=== PATIENT | female | born 1980 | race Caucasian/White ===

== ENCOUNTER → 2020-01-28 11:25 | Outpatient (CLI) | payer BC, SELFPAY ==
--- NOTE | ~2020-01-28 | MM_ITS ---
EXAMINATION: MM screening aury BI w reuben HISTORY: Screening mammogram TECHNIQUE: Craniocaudal and mediolateral oblique 3-D tomosynthesis images were obtained and synthetic 2-D images were generated. CAD analysis was submitted and interpreted. COMPARISON: 01/26/2019 bilateral digital screening mammogram 02/26/2019 diagnostic bilateral digital mammogram and Limited bilateral breast ultrasound examination BREAST PARENCHYMAL COMPOSITION: There are scattered areas of fibroglandular density. FINDINGS: There is no evidence of suspicious mass, calcification, or architectural distortion to sugg est malignancy in either breast. There has been no suspicious interval change. IMPRESSION: 1. No mammographic evidence of malignancy. 2. Recommend routine screening mammography in one year. BI-RADS Category 1: Negative Reviewed, dictated and finalized at location A.
== END ==
PROVIDERS: Visit Provider Nurse Practitioner
DX: Z12.31 Encounter for screening mammogram for malignant neoplasm of breast (principal)
CPT/HCPCS: 77063; 77067

== ENCOUNTER → 2020-02-02 09:24 | Outpatient (CLI) | payer BC, SELFPAY ==
--- NOTE | ~2020-02-02 | MR_ITS ---
EXAMINATION: MR knee RT wo con DATE: 02/02/2020 10:35 INDICATION: Right knee pain and swelling. TECHNIQUE: Magnetic resonance imaging (MRI) of the right knee was performed without intravenous contr ast. Sequences included axial PD-weighted FS FSE, coronal PD-weighted FSE and PD-weighted FS FSE, sag ittal PD-weighted FSE, and sagittal T2-weighted FS FSE. COMPARISON: None. FINDINGS: Medial compartment: Medial meniscus is normal. There is cartilage surface irregularity of tibial condyle and femoral cond yle. Marginal osteophytes are noted. Lateral compartment: Lateral meniscus is normal. There is cartilage surface irregularity of tibial condyle and femoral con dyle. Motion artifact decreases specificity. Marginal osteophytes are noted. Patellofemoral compartment: There is full-thickness cartilage loss of patellar median ridge and lateral facet with mild subchondr al edema-like marrow signal intensity. There is shallow partial-thickness cartilage loss of patellar medial facet. There is full-thickness cartilage loss of lateral trochlea with mild subchondral edema- like marrow signal intensity. There is shallow partial-thickness cartilage loss of medial trochlea. M arginal osteophytes are noted. Ligaments and tendons: The anterior and posterior cruciate ligaments are normal. Medial collateral ligament and lateral suki ateral ligament complex are intact. The patellar tendon is normal. Fluid: There is a small knee joint effusion. There is a small Mcmillan's cyst. Osseous/other: Red marrow expansion is noted. IMPRESSION: 1. Severe chondrosis of patellofemoral compartment and mild chondrosis of medial and lateral compartm ents. 2. Small knee joint effusion. 3. Small Mcmillan's cyst. Reviewed, dictated and finalized at location A. IMPRESSION: 1. Severe chondrosis of patellofemoral compartment and mild chondrosis of media l and lateral compartments. 2. Small knee joint effusion. 3. Small Mcmillan's cyst.
== END ==
DX: M25.461 Effusion, right knee (principal); M71.21 Synovial cyst of popliteal space [Baker], right knee
CPT/HCPCS: 73721

== ENCOUNTER → 2020-02-09 09:43 | Outpatient (CLI) | payer BC, SELFPAY ==
--- NOTE | ~2020-02-09 | MR_ITS ---
EXAMINATION: MR knee LT wo con DATE: 02/09/2020 10:30 INDICATION: Generalized left knee pain and swelling. Meniscal tear. TECHNIQUE: Magnetic resonance imaging (MRI) of the left knee was performed without intravenous contra st. Sequences included coronal PD-weighted FSE, coronal PD-weighted FS FSE, sagittal T2-weighted FSE , sagittal PD-weighted FS FSE and axial PD weighted fat saturated FSE. COMPARISON: None. FINDINGS: Medial compartment: Medial meniscus is normal. Small partial-thickness chondral fissure at the junction of the anterior t o central weightbearing medial femoral condyle without degenerative subchondral changes. Lateral compartment: Lateral meniscus is normal. Articular cartilage is normal. Patellofemoral compartment: Full/near full-thickness chondral fissuring extending from the lateral aspect of the medial patellar facet across the apical ridge and throughout much of the lateral patellar facet. There is subtle unde rlying cortical irregularity and extensive subarticular edema. Similar deep chondral ulceration with cortical irregularity and subarticular edema and cystic change at the central and superolateral aspec ts of the lateral trochlea. Deep chondral ulceration with small central subchondral osteophyte at the central aspect of the medial trochlea. Ligaments and tendons: Anterior and posterior cruciate ligaments are normal. The medial collateral ligament and fibular suki ateral ligament complex are normal. The extensor mechanism is normal. The visualized medial and later al hamstring tendons as well as the iliotibial band are normal. Fluid: Small knee joint effusion. No loose osteochondral bodies identified. Small Mcmillan's cyst with addition al small ganglion cyst extending caudally along the deep margin of the pes anserinus. Osseous/other: Patchy red marrow in the distal metaphyseal region of the femur. No fracture or pathologic marrow rep lacing process. IMPRESSION: 1. 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 2. Mild osteoarthritis in the medial compartment with small focus of moderate grade chondromalacia al crissy the weightbearing medial femoral condyle. 3. Small knee joint effusion. 4. Small Mcmillan's cyst and additional small ganglion cyst at the posteromedial aspect of the knee. Reviewed, dictated and finalized at location A. IMPRESSION: 1. Moderate patellofemoral osteoarthritis with extensive high-grade chondromala claudio. 2. Mild osteoarthritis in the medial compartment with small focus of moderate g rade chondromalacia along the weightbearing medial femoral condyle. 3. Small knee joint effusion. 4. Small Mcmillan's cyst and additional small ganglion cyst at the posteromedial a spect of the knee.
== END ==
DX: M25.562 Pain in left knee (principal); M17.12 Unilateral primary osteoarthritis, left knee; M94.262 Chondromalacia, left knee; M25.462 Effusion, left knee; M71.22 Synovial cyst of popliteal space [Baker], left knee; M67.462 Ganglion, left knee
CPT/HCPCS: 73721

== ENCOUNTER → 2021-02-27 14:43 | Outpatient (CLI) | payer BC, SELFPAY ==
--- NOTE | ~2021-02-27 | MM_ITS ---
EXAMINATION: MM screening aury BI w reuben HISTORY: Screening mammogram TECHNIQUE: Craniocaudal and mediolateral oblique 3-D tomosynthesis images were obtained and synthetic 2-D images were generated. CAD analysis was submitted and interpreted. COMPARISON: 01/28/2020 bilateral digital screening mammogram 02/26/2019 bilateral diagnostic mammogram and Limited bilateral breast ultrasound BREAST PARENCHYMAL COMPOSITION: There are scattered areas of fibroglandular density. FINDINGS: There is no evidence of suspicious mass, calcification, or architectural distortion to sugg est malignancy in either breast. There has been no suspicious interval change. IMPRESSION: 1. No mammographic evidence of malignancy. 2. Recommend routine screening mammography in one year. BI-RADS Category 1: Negative Reviewed, dictated and finalized at location A.
== END ==
PROVIDERS: Visit Provider Nurse Practitioner
DX: Z12.31 Encounter for screening mammogram for malignant neoplasm of breast (principal)
CPT/HCPCS: 77063; 77067

== ENCOUNTER → 2022-04-12 11:40 | Outpatient (CLI) | payer BC, SELFPAY ==
--- NOTE | ~2022-04-12 | MM_ITS ---
EXAMINATION: MM screening [facility] BI w reuben HISTORY: Screening mammogram TECHNIQUE: Craniocaudal and mediolateral oblique 3-D tomosynthesis images were obtained and synthetic 2-D images were generated. CAD analysis was submitted and interpreted. COMPARISON: 02/27/2021, 01/28/2020, 02/26/2019, 01/26/2019 BREAST PARENCHYMAL COMPOSITION: The breasts are heterogeneously dense, which may obscure small masses . FINDINGS: No suspicious mass, calcification, or architectural distortion are identified in either shanthi ast to suggest malignancy. There has been no suspicious interval change. IMPRESSION: 1. No mammographic evidence of malignancy. 2. Recommend routine screening mammography in one year. BI-RADS Category 1: Negative Reviewed, dictated and finalized at location A. DRY ROUTE DRIVER
== END ==
PROVIDERS: PCP Obstetrics & Gynecology Gynecology; Visit Provider Obstetrics & Gynecology Gynecology
DX: Z12.31 Encounter for screening mammogram for malignant neoplasm of breast (principal)
CPT/HCPCS: 77063; 77067

== ENCOUNTER 2022-08-17 12:05 | Outpatient (CLI) | payer BC, SELFPAY ==
[2022-08-17 13:26] LABS: Beta HCG Quantitative < 2.39 mIU/ML
[2022-08-20 04:28] LABS: LH 2.5 mIU/mL (***); Prolactin 8.2 ng/mL (***)
[2022-08-23 21:58] LABS: Estradiol, Ultrasensitive 88 pg/mL
== END 2022-08-17 12:06 | disposition home or self-care (01) ==
LOC: ANHLAB 12:06
PROVIDERS: PCP Obstetrics & Gynecology Gynecology; Visit Provider Obstetrics & Gynecology Gynecology
DX: N91.2 Amenorrhea, unspecified (principal)
CPT/HCPCS: 36415; 82670; 83001; 83002; 84146; 84439; 84443; 84702

== ENCOUNTER → 2022-08-19 12:45 | Outpatient (CLI) | payer BC, SELFPAY ==
--- NOTE | ~2022-08-19 | US_ITS ---
EXAMINATION: US pelvic complete DATE: 08/19/2022 13:10 INDICATION: Pelvic and perineal pain. Comparison:No prior studies for comparison. TECHNIQUE: Multiple transabdominal sonographic images of the pelvis performed. FINDINGS: The uterus measures 8.1 x 4.5 x 6.1 cm. There is uterine fibroid measuring 2 x 1.6 x 1.6 cm anteriorly. The endometrial complex measures 7 mm. The right ovary measures 2.9 x 1.8 x 2.6 cm and the left ovary measures 2.4 x 1.4 x 2.6 cm. There ar e small follicles in each ovary. Normal doppler signal in both ovaries. There is no free fluid in the pelvis. There are no abnormal masses seen on either side. IMPRESSION: 1. Uterine fibroid measuring 2 cm located anteriorly at the fundus. Reviewed, dictated and finalized at location L.
== END ==
PROVIDERS: PCP Advanced Practice Midwife; Visit Provider Advanced Practice Midwife
DX: D25.9 Leiomyoma of uterus, unspecified (principal); R10.2 Pelvic and perineal pain; N91.2 Amenorrhea, unspecified
CPT/HCPCS: 76856

== ENCOUNTER 2023-08-22 08:49 | Outpatient (CLI) | payer BC, SELFPAY ==
--- NOTE | ~2023-08-22 | MMUS_ITS ---
EXAMINATION: MM diagnostic aury BI w reuben, US breast BI limited HISTORY: Palpable left breast abnormality TECHNIQUE: Additional 3-D tomosynthesis images of the breasts were performed and synthetic 2-D images were generated. CAD analysis was submitted and interpreted. High resolution bilateral limited breast ultrasound was performed. COMPARISON: Comparison to multiple prior studies sequentially, with oldest reviewed study dated 01/26. BREAST PARENCHYMAL COMPOSITION: Not dense: There are scattered areas of fibroglandular density. FINDINGS: MAMMOGRAPHIC FINDINGS: There is focal asymmetry in the upper outer quadrant of the right breast, although no discrete mass i dentified. There is a mass in the lower outer quadrant of the left breast, middle third, correspondin g to the area of palpable concern. ULTRASOUND: Complete bilateral US of all 4 quadrants of the breasts and retroareolar region was reviewed. Right breast: At 9:00, 12 cm from the nipple, there is a 6 mm cyst. Left breast: At 4:00, 7 cm from the nipple, there is a 1.7 cm hypoechoic mass with internal vasculari ty IMPRESSION: 1. Slightly irregular shaped 1.7 cm left breast mass at 4:00, 7 cm from the nipple, corresponding to the mammographic and palpable abnormality. No evidence for malignancy in the right breast. 2. Ultrasound-guided left breast biopsy recommended. BI-RADS category 4, suspicious findings. Reviewed, dictated and finalized at location B. IMPRESSION: 1. Slightly irregular shaped 1.7 cm left breast mass at 4:00, 7 cm from the nip ple, corresponding to the mammographic and palpable abnormality. No evidence fo r malignancy in the right breast. 2. Ultrasound-guided left breast biopsy recommended. BI-RADS category 4, suspicious findings.
== END 2023-08-22 08:50 ==
LOC: MICIMG 08:50
PROVIDERS: PCP Obstetrics & Gynecology Gynecology; Visit Provider Obstetrics & Gynecology Gynecology
DX: N63.20 Unspecified lump in the left breast, unspecified quadrant (principal); R92.8 Other abnormal and inconclusive findings on diagnostic imaging of breast
CPT/HCPCS: 76642; 77062; 77066; G0279

== ENCOUNTER 2024-08-23 11:24 | Outpatient (CLI) | payer BC, SELFPAY ==
--- NOTE | ~2024-08-23 | MM_ITS ---
EXAMINATION: MM screening aury BI w reuben HISTORY: Screening TECHNIQUE: Craniocaudal and mediolateral oblique 3-D tomosynthesis images were obtained and synthetic 2-D images were generated. CAD analysis was submitted and interpreted. COMPARISON: Comparison to multiple prior studies sequentially, with oldest reviewed study dated 01/26. BREAST PARENCHYMAL COMPOSITION: Not dense: There are scattered areas of fibroglandular density. FINDINGS: There is no evidence of suspicious mass, calcification, or architectural distortion to sugg est malignancy in either breast. There has been no suspicious interval change. IMPRESSION: 1. No mammographic evidence of malignancy. 2. Recommend routine screening mammography in one year. BI-RADS Category 1: Negative Reviewed, dictated and finalized at location B.
== END 2024-08-23 11:25 | disposition home or self-care (01) ==
PROVIDERS: PCP Obstetrics & Gynecology Gynecology; Visit Provider Nurse Practitioner
DX: Z12.31 Encounter for screening mammogram for malignant neoplasm of breast (principal)
CPT/HCPCS: 77063; 77067

== ENCOUNTER 2025-04-20 19:12 | Emergency (ER) | payer BC, SELFPAY ==
--- OUTSIDE RECORDS SUMMARY | 2020-01-27 23:00 | XMS_ITS | Encounter Summary ---
Author Organization [facility] Healthcare Address [address] [place] [address] Care Team Providers Care Financial Auditor Name Role Phone Unavailable Primary Care Provider Unavailabl e Reason for Visit * Diagnostic Imaging (Routine) - Closed Specialty Diagnoses / Procedures Referred By Evens boone Referred To Contact Procedures Breast Imaging Screening Outside Reference Allison Newberry NP [address] [facility] [id number] [place] [address] Phone: tel: fax: Referral ID Status Reason Start Date Expiration Date Visits Re quested Visits Authorized [id number] Closed 09/09/2023 10/08/2024 1 1 Encounter Details Date Type Department Care Team (Late st Contact Info) Description 01/28/2020 Hospital Encounter [facility] [address] [place] [id number] Social History Tobacco Use Types Packs/Day Years Used Date Smoking Tobacco: Former Cigarettes 1 13 1 99 - 2007 Passive Smoke Exposure: Never Smokeless Tobacco: Never AUDIT-C Answer Date Recorded Q1: How often do you have a drink containing alc ohol? 2-3 times a week 01/02/2024 Q2: How many drinks containi ng alcohol do you have on a typical day when you are drinking? 3 or 4 01/02/2024 Q3: How often do you have si x or more drinks on one occasion? Less than monthly 01/02/2024 Personal Safety Answer Date Recorded Have you ever been in or are you currently in a harmful physical or emotional relationship or is someone making you feel afraid or unsafe? Denies 01/02/2024 Comments No Sex and Gender Information Value Date Recorded Sex Assigned at Not on file Legal Sex Female 3:55 PM CDT Gender Identity Not on file Sexual Orientation Not on file documented as of this encounter Functional Status * Difference in Last Two Brandon Scores Answer Date of Assessment Author 1 01/02/2024 11:15 AM CDT Jose Adams RN * Question Answer Date of Assessment Author MAP (mmHg) 102 01/02/2024 11:30 AM CDT Lidia Boland RN * Brady Fall Risk Question Answer Date of Assessment Author History of Falling 0 01/02/2024 11:14 AM Lidia Ramirez RN Secondary Diagnosis 15 01/02/2024 11:14 AM Lidia Castle RN Ambulatory Aids 0 01/02/2024 11:14 AM CDT Lidia Gilbert RN Intravenous Therapy/Heparin/Saline Lock 20 01/02/2024 11:14 AM CDT Jose Adams RN Gait/Transferring 0 01/02/2024 11:14 AM CDT Lidia Adams RN Mental Status 0 01/02/2024 11:14 AM CDT Lidia Wraren ms, RN Brady Fall Risk Score (Score >= 45 places fall precaution order) 35 01/02/2024 11:14 AM Lidia Pham RN Prior Fall Event (Autopopulated from EMR) None found 01/02/2024 11:14 AM CDT Audrey Adams RN * Brandon Scale Question Answer Date of Assessment Author Sensory Perceptions 4 01/02/2024 11:15 AM Lidia Castle RN Moisture 4 01/02/2024 11:15 AM CDT Lidia Boland RN Activity 4 01/02/2024 11:15 AM CDT Lidia Boland RN Mobility 4 01/02/2024 11:15 AM CDT Lidia Boland RN Nutrition 3 01/02/2024 11:15 AM MIT Lidia Boland RN Friction and Shear 3 01/02/2024 11:15 AM Lidia Ramirez RN Brandon Scale Score 22 01/02/2024 11:15 AM Lidia Ramirez RN * Fall Risk Interventions Question Answer Date of Assessment Author All Low Fall Interventions Applied Yes 01/02/2024 11:14 AM Lidia Pham RN All Moderate Fall Interventions Applied No 01/02/2024 11:14 AM Lidia Pham RN All Moderate Fall Risk Interventions EXCEPT: Gait belt at bedside;PT eval requested or obtained;OT eval requested or obtained 01/02/2024 11:14 AM Lidia Pham RN Reason For Exception(s) pacu 01/02/20 11:14 AM Lidia Pham RN * Pressure Injury Prevention Question Answer Date of Assessment Author Pressure Ulcer Prevention Interventions Keep skin clean and dry (Sensory Perception/Moistur e) 01/02/2024 11:15 AM Lidia Pham RN * AUDIT-C Score Answer Date of Assessment Author 5 01/02/2024 9:38 AM Rachid Crook RN * Alcohol Use Question Answer Date of Assessment Author Q1: How often do you have a drink containing alcohol? 2-3 times a week 01/02/2024 9:38 AM Rachid Crook RN Q2: How many drinks containing alcohol do you have on a typical day when you are drinking? 3 or 4 01/02/2024 9:38 AM Rachid Crook RN Q3: How often do you have six or more drinks on one occasion? Less than monthly 01/02/2024 9:38 AM Rachid Crook RN * Integumentary Question Answer Date of Assessment Author Skin Color Appropriate for ethnicity 01/02/2024 11:15 AM Lidia Pham RN Skin Condition/Temp Warm;Dry 01/02/2024 1 1:15 AM Lidia Pham RN Skin Integrity Surgical incision 01/02/2024 11: 15 AM Lidia Pham RN Skin Turgor Non-tenting 01/02/2024 11:15 AM Lidia Pham RN Integumentary Additional Assessments Yes-Brandon 01/02/2024 11:15 AM MIT Lidia Adams RN Integumentary (WDL) X 01/02/2024 1 1:15 AM IMT Lidia Adams RN Skin Location L breast 01/02/2024 11:15 AM MIT Lidia Adams RN * Brandon Scale Question Answer Date of Assessment Author Brandon Scale Used Brandon 01/02/2024 9:39 AM CDT Rachid Torre RN * Fall Risk Interventions Question Answer Date of Assessment Author All Low Fall Interventions Applied Yes 01/02/2024 11:14 AM Lidia Pham RN All Moderate Fall Interventions Applied No 01/02/2024 11:14 AM Lidia Pham RN All Moderate Fall Risk Interventions EXCEPT: Gait belt at bedside;PT eval requested or obtained;OT eval requested or obtained 01/02/2024 11:14 AM Lidia Pham RN Reason For Exception(s) pacu 01/02/20 24 11:14 AM MIT Lidia Adams RN * ADL Screening Question Answer Date of Assessment Author Hearing - Right Ear Functional 12/20/2023 4:11 PM Marisabel Hawley RN Hearing - Left Ear Functional 12/20/2023 4:11 PM Marisabel Rowland RN * Assistive Devices Question Answer Date of Assessment Author Assistive Devices/DME None 12/20/2023 4:11 PM Marisabel Rowland RN * Question Answer Date of Assessment Author Bed In Lowest Position Yes 01/02/2024 11:15 A M Lidia Pham RN Bed Wheels Locked Yes 01/02/2024 11:15 AM MIT Lidia Adams, FERNANDO documented as of this encounter Mental Status * Question Answer Entry Date Author Neuro (WILMER) WDL 01/02/2024 11:15 AM Lidia Paniagua RN documented in this encounter Plan of Treatment Not on file documented as of this encounter Procedures Procedure Name Priority Date/Time Associated Diagnosis Comments BREAST IMAGING MG SCREENING OUTSIDE REFERENCE Routine 01/28/2020 12:00 AM CDT documented in this encounter Results * Breast Imaging Screening Outside Reference (01/28/2020 12:00 AM CDT) Impressions [facility] - 09/09/2023 5:39 PM CDT These images are for Reference purposes only and have not been reviewed by [facility]iology. There will be no report generated by a [facility] Radiologist. Narrative [facility] - 09/09/2023 5:39 PM CDT EXAMINATION: Images For Reference Purposes Only us Allison Newberry NP IMG MAMMO PROCEDURES Final Result [facility] documented in this encounter Visit Diagnoses Not on filedocumented in this encounter
--- NOTE | ~2025-04-20 | XR_ITS ---
EXAMINATION: XR chest 1V portable COMPARISON: No comparisons available. HISTORY: SYNCOPE FINDINGS: The lungs are clear, no effusion. No pneumothorax. Heart is normal size. Mediastinal and hilar contours are within normal limits. Bony thorax no acute abnormality. Miscellaneous: None Impression: No acute cardiopulmonary abnormality. Reviewed, dictated and finalized at location P. ANT CLERK Impression: No acute cardiopulmonary abnormality.
--- NOTE | ~2025-04-20 | CT_ITS ---
CT HEAD NON-CONTRAST Clinical History: fall Comparison: None Technique: Unenhanced axial images skull base to vertex Coronal, sagittal reformats CT images acquired with automatic exposure control for dose reduction DLP: 605 mGy-cm Findings: Sulci, ventricles: Unremarkable. No intracerebral hemorrhage. No evidence acute territorial infarct. No mass effect, midline shift. Bony calvarium intact. Visualized paranasal sinuses: Clear. Mastoid air cells: Clear. IMPRESSION: 1. No acute intracranial findings. Reviewed, dictated and finalized at location R. NCT PROFESSOR OF ENGLISH
[2025-04-20 19:16] VITALS: BP 155/92; PULSE 79; RESP 18; TEMP 36.8; O2SAT 100
--- NOTE | 2025-04-20 19:22 | ECG_ITS ---
Test Date: 2025-04-20 19:31:17 Measurements Intervals [place] Rate: 77 P: 60 AR: 171 QRS: 4 QRSD: 98 T: 13 QT: 397 QTc: 450 Interpretive Statements SINUS RHYTHM DELAYED PRECORDIAL R/S TRANSITION BASELINE ARTIFACT- V1 BORDERLINE ECG No previous ECG available for comparison Electronically Signed On 04-20-2025 19:54:45 AUTOMOBILE TECHNICIAN by Vel Burns D.O.
[2025-04-20 19:38] LABS: Hematocrit 38.2 % (37.0-47.0); Hemoglobin 12.6 g/dL (12.0-15.0); Immature Granulocyte Percent A 0.5 % (0-0.5); Lymphocytes Absolute Auto 2.48 K/mm3 (0.9-3.2); Mean Corpuscular HGB Conc 33.0 g/dl (32-36); Mean Corpuscular Hemoglobin 32.6 pg (26-34); Mean Corpuscular Volume 98.7 fl (80-100); Nucleated Red Blood Cells Absolute Auto 0.000 K/mm3 (0.0-0.012); Nucleated Red Blood Cells Perc 0.0 % (0.0-0.2); Platelet Count Result 313 k/mm3 (150-375); Red Blood Count 3.87 M/mm3 (4.2-5.4); White Blood Count 9.9 K/mm3 (4.5-10.0)
[2025-04-20 19:58] LABS: Alanine Aminotransferase 19 U/L (6-35); Albumin Level 4.3 g/dL (3.5-5.1); Alkaline Phosphatase 56 U/L (38-126); Anion Gap 10 mmol/L (4-12); Aspartate Amino Transferase 25 U/L (14-36); Bilirubin,Total 0.4 mg/dL (0.2-1.3); Blood Urea Nitrogen 13 mg/dL (7-17); Calcium 9.1 mg/dL (8.4-10.2); Carbon Dioxide 18 mmol/L (22-30); Chloride 104 mmol/L (98-107); Estimated CRCL calculation 98 ml/min; Estimated Glomerular Filt Rate > 60; Glucose 132 mg/dL (65-110); Potassium 3.4 mmol/L (3.4-5.0); Sodium 132 mmol/L (137-145); Total Protein 7.4 g/dL (6.3-8.2)
[2025-04-20 20:02] LABS: BEDSIDEPREGUCG Negative (Negative)
--- OUTSIDE RECORDS SUMMARY | 2025-04-20 20:11 | XMS_ITS | Continuity of Care Document ---
Author Organization [facility] Reta BOUDREAUX Address [address] [place] [address] Assessment No assessment recorded. Plan of Treatment Reminders Order Date Submit Date Provider Last Modified By Organization Details Last Modified Time Details Appointments None recorded. Lab None recorded. Referral None recorded. Procedures None recorded. Surgeries None recorded. Imaging None recorded. Medication Orders escitalopra m [address] mg tablet [address] [facility] [address] [place], [address], 13:18:53 Patient TargetsNo targets recorded. Patient Instructions Encounter Date Encounter Id Patient Instructions Last Modified By Organization Details Last Modified Time 02/19/2025 [id number] A healthy lifestyle: care instructions Not available 02/19/2025 13:18:46 Reason for Referral None Reported. Problems Name Problem SNOMED Code Status Onset Date Resolution Date Notes Provider Name and Address Organization Details Recorded Time Generalized anxiety disorder 83455596 Active 2022 Laz Armstrong PA-C Attn: Krystin lema,[address] [place], [address], [facility] 3 12:19:37 Obesity 226591199 Active 2022 Laz Armstrong PA-C Attn: Krystin lema,[address] [place], [address], [facility] 3 12:19:38 Essential hypertension 67450500 Active 2022 Laz Armstrong PA-C Attn: Krystin lema,[address], [place], [address], [facility] 3 11:28:05 Problem Notes None recorded. Procedures Surgical History Date Name Laterality Status Provider Name and Address Organization Details Recorded Time Knee Surgery completed Avril Tellez [place] - [facility] 11/05/2022 12:00:18 Imaging Results None recorded. Procedure Notes None recorded. Medical Equipment None Reported. Allergies No known drug allergies Medications Name Sig Start Date Stop Date Status Note LastModified by Organization Details LastModified Time fluoxetine 40 mg capsule Take 1 capsule by mouth once daily 10/04 completed Not Available Not Available Not Available medroxyprog esterone 10 mg tablet TAKE 1 TABLET BY MOUTH ONCE DAILY 11/05 completed Not Available Not Available Not Available clonidine HCl 0.1 mg tablet take one tablet up to twice daily as needed for BP >160/100 11/27 completed Not Available Not Available Not Available trazodone 50 mg tablet Take 1 tablet by mouth once daily 2024 active Not Available Not Available Not Avai lable famotidine 40 mg tablet TAKE 1 TABLET BY MOUTH ONCE DAILY active Not Available Not Available No t Available potassium chloride ER 10 mEq tablet,exte nded release TAKE 4 TABLETS BY MOUTH NOW 10/04 completed Not Available Not Available Not Available chlorthalid one 25 mg tablet TAKE 1 TABLET BY MOUTH ONCE DAILY FOR 30 DAYS 04/22 completed Not Available Not Available Not Available chlorthalid one 50 mg tablet TAKE 1 TABLET BY MOUTH ONCE DAILY 04/22 completed Not Available Not Available Not Available oxycodone-a cetaminophe n 5 mg-325 mg tablet TAKE 1 TO 2 TABLETS BY MOUTH EVERY 4 HOURS NEEDED FOR PAIN 10/04 completed Not Available Not Available Not Available amlodipine 10 mg tablet TAKE 1 TABLET BY MOUTH ONCE DAILY active Not Available Not Available No t Available buspirone 7.5 mg tablet TAKE 1 TABLET BY MOUTH TWICE DAILY 12/03 completed Not Available Not Available Not Available fluoxetine 20 mg capsule TAKE 1 CAPSULE BY MOUTH ONCE DAILY 01/07 completed Not Available Not Available Not Available hydroxyzine pamoate 25 mg capsule TAKE 1 CAPSULE BY MOUTH 4 TIMES DAILY NEEDED 10/04 completed Not Available Not Available Not Available bupropion HCl XL 300 mg 24 hr tablet, extended release TAKE 1 TABLET BY MOUTH ONCE DAILY FOR 30 DAYS 01/21 completed Not Available Not Available Not Available bupropion HCl XL 150 mg 24 hr tablet, extended release Take 1 tablet every day by oral route for 30 days. 12/21 completed Not Available Not Available Not Available escitalopra m 5 mg tablet TAKE 1 TABLET BY MOUTH ONCE DAILY active Not Available Not Available No t Available duloxetine 30 mg capsule,del ayed release Take 1 capsule every day by oral route for 15 days. 10/26 completed Not Available Not Available Not Available duloxetine 60 mg capsule,del ayed release TAKE 1 CAPSULE BY MOUTH ONCE DAILY FOR 30 DAYS 11/21 completed Not Available Not Available Not Available Slynd 4 mg (28) tablet TAKE 1 TABLET BY MOUTH ONCE DAILY active Not Available Not Available No t Available Sutab 1.479-0.188 -0.225 gram tablet TAKE 12 TABLETS BY MOUTH TWICE DAILY DIRECTED 10/04 completed Not Available Not Available Not Available Wegovy 0.25 mg/0.5 mL subcutaneou s pen injector Inject by subcutane ous route for 56 days. 12/03 completed Not Available Not Available Not Available Vitals Date Recorded Body height Body mass index (BMI) Body weight Oxygen saturation Heart rate Respiratory rate Systolic And Diastolic Provider Name and Address Organization Details Last Updated DateTime 167.64 cm 33.3 kg/m2 50268.7 8 g 98 % 88 /min 17 /min 158/88 mm[Hg] Stella Hopper MA [place] - [facility] 13:04:56 Social History Question Answer Notes LastModified by Organizat ion Details LastModified Time Tobacco Smoking Status Former Smoker Stella Henry MA null, [place] - [facility] 12/03/2022 09:39:03 Do You Have An Advance Directive? No Information n ot available 11/28/2023 Are You Blind Or Do You Have Difficulty Seeing? No Information n ot available 11/28/2023 What Is Your Level Of Caffeine Consumption? Heavy Information not available 11/28/2023 In The 14 Days Before Symptom Onset, Have You Had Close Contact With A Laboratory-confirm ed COVID-19 While That Case Was Ill? No Information n ot available 11/28/2023 In The 14 Days Before Symptom Onset, Have You Had Close Contact With A Person Who Is Under Investigation For COVID-19 While That Person Was Ill? No Information not available 11/28/2023 Are You Deaf Or Do You Have Serious Difficulty Hearing? No Information not available 11/28/2023 What Type Of Diet Are You Following? REGULAR Information n ot available 11/28/2023 Are There Any Guns Present In Your Home? No Information not available 11/28/2023 What Was The Date Of Your Most Recent Tobacco Screening? 02/19/2025 Information not available 02/19/2025 How Many Children Do You Have? 2 Information not available 11/28/2023 What Is Your Relationship Status? Information not available 11/28/2023 Do You Use Your Seat Belt Or Car Seat Routinely? Yes Information not available 11/28/2023 Are You Sexually Active? Yes Information not available 11/28/2023 Do You Have Smoke And Carbon Monoxide Detectors In Your Home? Yes Information not available 11/28/2023 At What Age Did You Start Smoking Tobacco? 11 Information not available 12/03/2022 Are You Passively Exposed To Smoke? No Information no t available 11/28/2023 Do You Use Sunscreen Routinely? Yes Information not available 11/28/2023 Has Tobacco Cessation Counseling Been Provided? Yes Information not available 12/03/2022 On What Date Was Tobacco Cessation Counseling Provided? 02/19/2025 Information not available 02/19/2025 Sex: Female Functional Status Question Answer Note LastModified by Organizat ion Details LastModified Time Do you use any illicit or recreational drugs? No Information not available 11/28/2023 Do you or have you ever used any other forms of tobacco or nicotine? No Information not available 12/03/2022 What is your level of alcohol consumption? Moderate Information not available 11/28/2023 Are you currently employed? Yes Information not available 11/28/2023 Are you able to care for yourself independently? Yes Information not available 11/28/2023 What is your exercise level? Occasional Information not available 11/28/2023 Mental Status Question Answer Note LastModified by Organization D etails LastModified Time Do you feel stressed (tense, restless, nervous, or anxious, or unable to sleep at night)? [id number] Information not available 11/28/2023 Family History Relationship Description Onset Age of this Age Resolved Age Notes LastModified by Organization Details LastModified Time Father Diabetes mellitus [email or web address] Not available 2022 11:59:21 Father Myocardial infarction Not available 11/07 09:38:30 Medical History Condition Response Anxiety Disorder Y High Blood Pressure Y Gynecological History Statement/Question Response Current Control Method Ablation Obstetrics History GPAL:G 0 P 0 0 0 2 Type Value Living 2 Immunizations Vaccine Type Date Status Note Provider Nam e and Address Organization Details Recorded Time MMR 07/09/1981 completed Telisa Rosalinda, [employer] null, [place] - [facility] 11/05/2022 11:57:19 DTP 07/14/1983 completed Telisa Rosalinda, [employer] [place], [place] [facility] 11/05/2022 11:57:20 DTP 08/13/1981 completed Telisa Rosalinda [employer] [place] [facility] 11/05/2022 11:57:20 DTP 08/25/1979 completed Telisa [place], [employer] [place] [facility] 11/05/2022 11:57:20 DTP 1978 completed Telisa [place], [employer] [place] [facility] 11/05/2022 11:57:20 DTP 12/25/1979 completed Telisa [place], [employer] [place] [facility] 11/05/2022 11:57:20 OPV, trivalent 07/14/1983 completed Telisa Nan d[place], [employer] [place] [facility] 11/05/2022 11:57:20 OPV, trivalent 08/13/1981 completed Telisa [place], [employer] [place] [facility] 11/05/2022 11:57:20 OPV, trivalent 08/25/1979 completed Telisa [place], [employer] [place] [facility] 11/05/2022 11:57:20 OPV, trivalent 1978 completed Telisa [place], [employer] [place] [facility] 11/05/2022 11:57:20 OPV, trivalent 12/25/1979 completed Telisa [place], [employer] [place] [facility] 11/05/2022 11:57:20 Tdap 11/05/2022 completed Telisa [place], [employer] [place] [facility] 11/05/2022 12:45:27 Past Encounters Encounter ID Performer Location Encounter Start Date Encounter Closed Date Diagnosis/Indication Diagnosis SNOMED-CT Code Diagnosis ICD10 Code Diagnosis IMO Codes Diagnosis Note [id number] [facility] [address] [place] [address] 01/21/2025 12:47:41 01/21/2025 13:20:47 Essential hypertension 29397761 I10 01/21/25: 160/94 today. will monitor at one month follow up. 12/21/24: 134/88 10/19/24: improved at 136/80 10/04/24: out of amlodipine and 159/96 and will refill. 11/28/23: elevated today at 170/92. did consider pheochromo cytoma with complaint of tremor, but denies YIN and diaphoresi s, other components of classic triad. keep BiD BP log and bring back in one week. 04/22/23: chlorthali done stopped 2/2 hypoNa and discharged on amlodipine 10. BPs reportedly well controlled while inpatient, but is 184/132 without red flag s/sx. recommend BiD BP monitoring and will start PRN clonidine for BP > 160/100 01/21/23: nurse visit: 140/100 today. bump chlorthali done to 50mg 01/07/23: 160/80 today without symptoms. will go ahead and start treatment and discussed options in great detail and will trial chlorthali done. educated on adverse drug reactions in detail. RTC 1-2 weeks for nurse visit recheck. Pt comfortabl e with plan. 12/03/22: 136/82 and will continue to monitor. 11/05/22: 138/88 today and gives history of intermitte nt HTN. reprots was treated for this extensivel y last year but feels is due to anxiety. educated on potential sequelae, even if follows a white coat HTN pattern. that said, treating for anxiety as above and will monitor and remains elevated at next appt, then will treat. Obese class I [id number] 46106 E66.811 E66.3 [id number] Generalize d anxiety disorder 02900578 F41.1 01/21/25: feels is worse once more and discussed options and will switch to escitalopr am and would RTC one month to assess response. if insufficie nt benefit at that point, will refer to psych. pt comfortabl e with plan. 12/21/24: taking bupropion as rx'ed and reports about a 50% reduction in anxiety symptoms and getting 7 hours of sleep consistent ly a night on trazodone with no ADRs. discussed with patient in detail and would like to keep trazodone same and increase bupropion. RTC one month to assess response. 11/21/24: no benefit to increased duloxetine . discussed options in great detail. pt out of med for one week without issue. pt would like to trial bupropion. reprots difficulty sleeping and discussed options and will add hs trazodone, as well. educated on adverse drug reactions in detail. Pt comfortabl e with plan. 10/19/24: reports minimal benefit to duloxetine but denies ADRs. discussed with patient in detail and will trial increasing dose to 60mg and RTC one month to assess response. reiterated ADRs. pt comfortabl e with plan. 10/04/24: has not taken fluoxetine for some time and feels anxiety remains uncontroll ed. discussed options in exhaustive detail. pt interested in switching to SNRI. educated on adverse drug reactions in detail. RTC two weeks to assess response. Pt comfortabl e with plan. 11/28/23: stated as well controlled with fluoxetine but trialing holding for one week as above . 04/22/23: fluoxetine held while inpatient due to hypoNa and SIADH reportedly ruled out. will recheck Na and can resume if normalized >> normalized . resume fluoxetine . requests PRN med for anxiety. not amenable to benzos and can resume hydroxyzin e. 01/07/23: reports partial benefit to fluoxetine . pt reports partial benefit to fluoxetine without adverse effect and would like to increase dose and will bump to 40. 12/03/22: no benefit to buspirone and discussed options in great detail and will trial fluoxetine . Educated pt on adverse effects, including black box warning on increased risk of suicide. Discussed expected timeline of therapy in detail. Recommende d counsellin g and 150 minutes exercise per week. RTC one month. Pt comfortabl e with plan. 11/05/22: pt reports longstandi ng generalize d anxiety. reprots hypervigil ance, racing thoughts at night and excessive worrying about events beyond her control without SI, HI, AVH. denies panic attacks. discussed options in great detail. recently on hydroxyzin e without benefit. given concerns for weight, will avoid SSRIs and trial buspirone. educated on adverse drug reactions in detail. RTC one month. Pt comfortabl e with plan. [id number] [facility] [address] [place] [address] 02/19/2025 12:55:47 02/19/2025 13:18:49 Essential hypertension 04427650 I10 02/19/25: 158/88. recommend BiD BP log x10-14 days and will adjust as needed. 01/21/25: 160/94 today. will monitor at one month follow up. 12/21/24: 134/88 10/19/24: improved at 136/80 10/04/24: out of amlodipine and 159/96 and will refill. 11/28/23: elevated today at 170/92. did consider pheochromo cytoma with complaint of tremor, but denies YIN and diaphoresi s, other components of classic triad. keep BiD BP log and bring back in one week. 04/22/23: chlorthali done stopped 2/2 hypoNa and discharged on amlodipine 10. BPs reportedly well controlled while inpatient, but is 184/132 without red flag s/sx. recommend BiD BP monitoring and will start PRN clonidine for BP > 160/100 01/21/23: nurse visit: 140/100 today. bump chlorthali done to 50mg 01/07/23: 160/80 today without symptoms. will go ahead and start treatment and discussed options in great detail and will trial chlorthali done. educated on adverse drug reactions in detail. RTC 1-2 weeks for nurse visit recheck. Pt comfortabl e with plan. 12/03/22: 136/82 and will continue to monitor. 11/05/22: 138/88 today and gives history of intermitte nt HTN. reprots was treated for this extensivel y last year but feels is due to anxiety. educated on potential sequelae, even if follows a white coat HTN pattern. that said, treating for anxiety as above and will monitor and remains elevated at next appt, then will treat. Obese class I [id number] 67200 E66.811 E66.3 [id number] Generalize d anxiety disorder 32679566 F41.1 02/19/25: reports good benefit to escitalopr am. denies any interval panic symptoms and feels daily stress is more manageable and is sleeping better as well. no ADRs. discussed option of increasing med vs. keeping same and patient would like to maintain current dose. RTC three months or sooner as needed. 01/21/25: feels is worse once more and discussed options and will switch to escitalopr am and would RTC one month to assess response. if insufficie nt benefit at that point, will refer to psych. pt comfortabl e with plan. 12/21/24: taking bupropion as rx'ed and reports about a 50% reduction in anxiety symptoms and getting 7 hours of sleep consistent ly a night on trazodone with no ADRs. discussed with patient in detail and would like to keep trazodone same and increase bupropion. RTC one month to assess response. 11/21/24: no benefit to increased duloxetine . discussed options in great detail. pt out of med for one week without issue. pt would like to trial bupropion. reprots difficulty sleeping and discussed options and will add hs trazodone, as well. educated on adverse drug reactions in detail. Pt comfortabl e with plan. 10/19/24: reports minimal benefit to duloxetine but denies ADRs. discussed with patient in detail and will trial increasing dose to 60mg and RTC one month to assess response. reiterated ADRs. pt comfortabl e with plan. 10/04/24: has not taken fluoxetine for some time and feels anxiety remains uncontroll ed. discussed options in exhaustive detail. pt interested in switching to SNRI. educated on adverse drug reactions in detail. RTC two weeks to assess response. Pt comfortabl e with plan. 11/28/23: stated as well controlled with fluoxetine but trialing holding for one week as above . 04/22/23: fluoxetine held while inpatient due to hypoNa and SIADH reportedly ruled out. will recheck Na and can resume if normalized >> normalized . resume fluoxetine . requests PRN med for anxiety. not amenable to benzos and can resume hydroxyzin e. 01/07/23: reports partial benefit to fluoxetine . pt reports partial benefit to fluoxetine without adverse effect and would like to increase dose and will bump to 40. 12/03/22: no benefit to buspirone and discussed options in great detail and will trial fluoxetine . Educated pt on adverse effects, including black box warning on increased risk of suicide. Discussed expected timeline of therapy in detail. Recommende d counsellin g and 150 minutes exercise per week. RTC one month. Pt comfortabl e with plan. 11/05/22: pt reports longstandi ng generalize d anxiety. reprots hypervigil ance, racing thoughts at night and excessive worrying about events beyond her control without SI, HI, AVH. denies panic attacks. discussed options in great detail. recently on hydroxyzin e without benefit. given concerns for weight, will avoid SSRIs and trial buspirone. educated on adverse drug reactions in detail. RTC one month. Pt comfortabl e with plan. Gastroesop hageal reflux disease [id number] K21.9 02/19/25: stated as controlled with limiting caffeine mostly and just taking famotidine PRN. 11/21/24: rx famotidine . Health Concerns Section Related Observation LastModified by Organization Detai ls LastModified Time None Recorded Concern Status LastModified by Organization Details LastModified Time None Recorded Payers Encounter Date Sequence Insurance Name Policy Number Policy [place] Covered Member ID [place] Member ID Guarantor Name 02/19/2025 1 [employer] 111 Radha Das [id number] Radha Das Notes Date Note Type Note Provider Name and Address Organization Details Recorded Time 02/19/2025 text/html ROS as noted in the HPI Pt presents for one month f/u [facility] good benefit to escitalopram. denies any interval panic symptoms and feels daily stress is more manageable and is sleeping better as well. no ADRs. denies SI, HI, AVH. Laz Armstrong PA-C Attn: [employer] [place], [address], [facility] [place] 02/19/2025 13:20:35 OBGyn Episode No OBEpisode recorded.
--- OUTSIDE RECORDS SUMMARY | 2025-04-20 20:12 | XMS_ITS | Data Portability ---
Author Organization [facility] Address [address] [place] [address] Assessment No assessment recorded. Plan of Treatment Reminders Order Date Submit Date Provider Last Modified By Organization Details Last Modified Time Details Appointments None recorded. Lab None recorded. Referral None recorded. Procedures None recorded. Surgeries None recorded. Imaging None recorded. Medication Orders escitalopra m 5 mg tablet 2024 025 [facility] [address] [place], [address], 13:18:53 escitalopra m 5 mg tablet 2024 025 [facility] [address] [place], [address], 13:20:55 bupropion HCl XL 300 mg 24 hr tablet, extended release 2024 025 [facility] [address] [place], [address], 5 13:43:19 trazodone 50 mg tablet 2024 025 [facility] [address] [place], [address], 5 10:02:50 trazodone 50 mg tablet 2024 025 [facility] [address] [place], [address], 15:50:57 bupropion HCl XL 150 mg 24 hr tablet, extended release 2024 025 [facility] [address] [place], [address], 10:03:51 famotidine 40 mg tablet 2024 025 [facility] [address] [place], [address], 15:50:57 duloxetine 60 mg capsule,del ayed release 2024 025 [facility] [address] [place], [address], 15:24:40 Patient TargetsNo targets recorded. Patient Instructions Encounter Date Encounter Id Patient Instructions Last Modified By Organization Details Last Modified Time 10/19/2024 [id number] Quitting Tobacco: Care Instructions Not available 10/19/2024 10:18:15 medical record request* - labs at [facility] february 2024 [email or web address] Not available 11/01/2024 10:48:27 A healthy lifestyle: care instructions Not available 10/19/2024 10:18:15 11/21/2024 [id number] A healthy lifestyle: care instructions Not available 11/21/2024 15:50:47 Sections of the HPI, exam and assessment completed by CHRISTIN Malave and have been reviewed by me. I agree with the exam findings, assessment and plan except where specifically documented or amended. -Laz Armstrong, [facility] [place] MICHI Not available 11/26/2024 08:10:07 12/21/2024 [id number] A healthy lifestyle: care instructions Not available 12/21/2024 10:02:43 01/21/2025 [id number] A healthy lifestyle: care instructions Not available 01/21/2025 13:20:45 02/19/2025 [id number] A healthy lifestyle: care instructions Not available 02/19/2025 13:18:46 Reason for Referral None Reported. Results Created Date Observation Date Name Description Value Unit Range Abnormal Flag Note LastModifiedBy Organization Detail LastModifiedTime Result Notes None recorded. Problems Name Problem SNOMED Code Status Onset Date Resolution Date Notes Provider Name and Address Organization Details Recorded Time Generalized anxiety disorder 47414930 Active 2022 Laz Armstrong PA-C Attn: Krystin lema,[address] [facility], [place], [address], [facility] - SI 3 12:19:37 Obesity 872028702 Active 2022 Laz Armstrong PA-C Attn: Krystin lema,[address] [facility], [place], [address], [facility] - SI 3 12:19:38 Essential hypertension 64899064 Active 2022 Laz Armstrong PA-C Attn: Krystin lema,[address] [facility], [place], [address], [facility] - [place] 3 11:28:05 Problem Notes None recorded. Procedures Surgical History Date Name Laterality Status Provider Name and Address Organization Details Recorded Time Knee Surgery completed Avril Tellez LPN [facility] 11/05/2022 12:00:18 Imaging Results None recorded. Procedure [...] and Address Organization Details Last Updated DateTime 5 167.64 cm 33.1 kg/m2 35920.7 9 g 99 % 86 /min 16 /min 136/80 mm[Hg] Stella Henry MA [facility] 5 09:59:21 Date Recorded Body height Body mass index (BMI) Body weight Oxygen saturation Heart rate Respiratory rate Systolic And Diastolic Provider Name and Address Organization Details Last Updated DateTime 167.64 cm 33.4 kg/m2 99804.3 2 g 98 % 80 /min 16 /min 160/90 mm[Hg] Stella Hopper MA [facility] 5 14:48:08 Date Recorded Systolic And Diastolic Provider Name and Address Organization Details Last Updated DateTime 12/21/2024 134/88 mm[Hg] NILA Almaraz Attn: Accounting,[address] [place], [address], [facility] 12/21/2024 09:58:57 Date Recorded Body height Body mass index (BMI) Body weight Oxygen saturation Heart rate Respiratory rate Systolic And Diastolic Provider Name and Address Organization Details Last Updated DateTime 167.64 cm 32.1 kg/m2 15488.5 8 g 98 % 74 /min 16 /min 142/98 mm[Hg] Stella Hopper MA [facility] 5 09:32:26 Date Recorded Systolic And Diastolic Provider Name and Address Organization Details Last Updated DateTime 01/21/2025 160/94 mm[Hg] NILA Almaraz Attn: Accounting,[address] [place], [address], [facility] 01/21/2025 15:41:59 Date Recorded Body height Body mass index (BMI) Body weight Heart rate Respiratory rate Provider Name and Address Organization Details Last Updated DateTime 01/21/2025 167.64 cm 33.1 kg/m2 41642.44 g 92 /min 16 /min Avril Tellez LPN [place] - [place] 12:51:45 Date Recorded Body height Body mass index (BMI) Body weight Oxygen saturation Heart rate Respiratory rate Systolic And Diastolic Provider Name and Address Organization Details Last Updated DateTime 167.64 cm 33.3 kg/m2 90248.7 8 g 98 % 88 /min 17 /min 158/88 mm[Hg] Stella Hopper MA [place] - [place] 13:04:56 Social History Question Answer Notes LastModified by Organizat ion Details LastModified Time Tobacco Smoking Status Former Smoker Stella Henry MA [facility], [facility] 12/03/2022 09:39:03 Do You Have An Advance [...] anxious, or unable to sleep at night)? [id number] Information not available 11/28/2023 Family History Relationship [...] Details Recorded Time MMR 07/09/1981 completed Telisa Habersham, [employer] [place], [place] [facility] 11/05/2022 11:57:19 DTP 07/14/1983 completed Telisa Habersham, [employer] [place] [facility] 11/05/2022 11:57:20 DTP 08/13/1981 completed Telisa Habersham, [employer] [place] [facility] 11/05/2022 11:57:20 DTP 08/25/1979 completed Telisa Habersham, [employer] [place] [facility] 11/05/2022 11:57:20 DTP 1978 completed Telisa Habersham, [employer] [place] [facility] 11/05/2022 11:57:20 DTP 12/25/1979 completed Telisa Habersham, [employer] [place] [facility] 11/05/2022 11:57:20 OPV, trivalent 07/14/1983 completed Telisa Nan ce, [employer] [place] [facility] 11/05/2022 11:57:20 OPV, trivalent 08/13/1981 completed Telisa Nan ce, [employer] [place] [facility] 11/05/2022 11:57:20 OPV, trivalent 08/25/1979 completed Telisa Nan ce, [employer] [place] [facility] 11/05/2022 11:57:20 OPV, trivalent 1978 completed Telisa Nan ce, [employer] [place] [facility] 11/05/2022 11:57:20 OPV, trivalent 12/25/1979 completed Telisa Nan ce, [employer] [place] [facility] 11/05/2022 11:57:20 Tdap 11/05/2022 completed Telisa Habersham, [employer] [place] [facility] 11/05/2022 12:45:27 Past Encounters Encounter ID Performer Location Encounter Start Date Encounter Closed Date Diagnosis/Indication Diagnosis SNOMED-CT Code Diagnosis ICD10 Code Diagnosis IMO Codes Diagnosis Note [id number] MD Reta Vallejo [address] [place] [address] 11/05/2022 11:33:00 11/05/2022 12:57:20 Obesity 021628205 E66.9 11/05/22: BMI 32. pt reports steadily increasing weight over past 10 years despite regular diet and exercise and interested in wegovy. educated on adverse drug reactions and administra tion in detail. will rx. RTC one month for weight check. Pt comfortabl e with plan. Generalize d anxiety disorder 09309208 F41.1 11/05/22: pt reports longstandi ng generalize d [...] one month. Pt comfortabl e with plan. Blood pres sure above reference range 19758221 R03.0 11/05/22: 138/88 today and gives history of intermitte nt HTN. reprots was treated for this extensivel y last year but feels is due to anxiety. educated on potential sequelae, even if follows a white coat HTN pattern. that said, treating for anxiety as above and will monitor and remains elevated at next appt, then will treat. Active or passive immunization 367644510 Z23 Depression screening 171 738407 Z13.31 11/05/22: PHQ 0 [id number] MD Reta Vallejo [facility] [address] [place] [address] 12/03/2022 09:28:50 12/03/2022 09:58:16 Obesity 690837339 E66.9 12/03/22: unable to fill wegovy due to supply issues and waiting on restock. 11/05/22: BMI 32. pt reports steadily increasing weight over past 10 years despite regular diet and exercise and interested in wegovy. educated on adverse drug reactions and administra tion in detail. will rx. RTC one month for weight check. Pt comfortabl e with plan. Generalize d anxiety disorder 29047983 F41.1 12/03/22: no benefit to buspirone and discussed [...] one month. Pt comfortabl e with plan. Blood pres sure above reference range 16185015 R03.0 12/03/22: 136/82 and will continue to monitor. 11/05/22: 138/88 today and gives history of intermitte nt HTN. reprots was treated for this extensivel y last year but feels is due to anxiety. educated on potential sequelae, even if follows a white coat HTN pattern. that said, treating for anxiety as above and will monitor and remains elevated at next appt, then will treat. [id number] MD Reta Vallejo [facility] [address] [place] [address] 01/07/2023 10:27:52 01/07/2023 11:45:05 Obesity 348023651 E66.9 12/03/22: unable to fill wegovy due to supply issues and waiting on restock. 11/05/22: BMI 32. pt reports steadily increasing weight over past 10 years despite regular diet and exercise and interested in wegovy. educated on adverse drug reactions and administra tion in detail. will rx. RTC one month for weight check. Pt comfortabl e with plan. Generalize d anxiety disorder 14402760 F41.1 01/07/23: reports partial benefit to fluoxetine . [...] one month. Pt comfortabl e with plan. Essential hypertension 00927660 I10 01/07/23: 160/80 today without symptoms. will go [...] elevated at next appt, then will treat. [id number] MD Reta Vallejo [facility] [address] [place] [address] 01/21/2023 10:34:43 01/21/2023 16:56:10 Obesity 892261818 E66.9 12/03/22: unable to fill wegovy due to supply issues and waiting on restock. 11/05/22: BMI 32. pt reports steadily increasing weight over past 10 years despite regular diet and exercise and interested in wegovy. educated on adverse drug reactions and administra tion in detail. will rx. RTC one month for weight check. Pt comfortabl e with plan. Essential hypertension 46012440 I10 01/07/23: 160/80 today without symptoms. will go [...] elevated at next appt, then will treat. [id number] MD Reta Vallejo [address] [place] [address] 02/11/2023 11:41:53 02/11/2023 11:56:48 Obesity 345348458 E66.9 12/03/22: unable to fill wegovy due to supply issues and waiting on restock. 11/05/22: BMI 32. pt reports steadily increasing weight over past 10 years despite regular diet and exercise and interested in wegovy. educated on adverse drug reactions and administra tion in detail. will rx. RTC one month for weight check. Pt comfortabl e with plan. Essential hypertension 99475249 I10 01/21/23: nurse visit: 140/100 today. bump chlorthali [...] elevated at next appt, then will treat. [id number] MICHI Almaraz [address] [place] [address] 04/22/2023 10:57:06 04/22/2023 12:10:26 Obesity 203041950 E66.9 04/22/23: BMI 31.9 12/03/22: unable to fill wegovy due to supply issues and waiting on restock. 11/05/22: BMI 32. pt reports steadily increasing weight over past 10 years despite regular diet and exercise and interested in wegovy. educated on adverse drug reactions and administra tion in detail. will rx. RTC one month for weight check. Pt comfortabl e with plan. Essential hypertension 34198982 I10 04/22/23: chlorthali done stopped 2/2 hypoNa and [...] elevated at next appt, then will treat. Hyponatremia 49319006 E8 7.1 04/22/23: hospital follow up: developed vague constituti onal symptoms for one week presented to [facility] ED where found to be severely hyponatrem ic with Na 116 and transferre d to [facility] ICU. there extensive workup done and SIADH reportedly ruled out. felt to likely be secondary to chlorthali done. seems extreme for this med, but will recheck >> Na normalized . Hyperlipid emia screening 266598440 Z13.220 Diabetes m ellitus screening 139233063 Z13.1 HIV screening 761081149 Z11.4 Generalize d anxiety disorder 09047979 F41.1 04/22/23: fluoxetine held while inpatient due to [...] one month. Pt comfortabl e with plan. Depression screening 171 064730 Z13.31 11/05/22: PHQ 0 [id number] MICHI Almaraz [facility] [address] [place] [address] 11/28/2023 09:40:54 11/28/2023 10:11:12 Obesity 241231921 E66.8 04/22/23: BMI 31.9 12/03/22: unable to fill wegovy due to supply issues and waiting on restock. 11/05/22: BMI 32. pt reports steadily increasing weight over past 10 years despite regular diet and exercise and interested in wegovy. educated on adverse drug reactions and administra tion in detail. will rx. RTC one month for weight check. Pt comfortabl e with plan. Tremor 86183154 R25.1 11/28/23: to bilateral hands for past month. waxes and wanes, worse when anxious. on exam has tremor both resting and with intention. pt is 2-3 drink/nigh t, 4 night/week drinker, but denies benefit to tremor with etoh. pt concerned related to SSRI and my index of suspicion for such is low. that said, can hold fluoxetine for one week and then assess response. pt comfortabl e with plan. Essential hypertension 33245056 I10 11/28/23: elevated today at 170/92. did consider [...] elevated at next appt, then will treat. Generalize d anxiety disorder 00400632 F41.1 11/28/23: stated as well controlled with fluoxetine [...] one month. Pt comfortabl e with plan. [id number] MD Reta Vallejo [address] [place] [address] 10/04/2024 13:29:30 10/04/2024 14:05:52 Essential hypertension 17691369 I10 10/04/24: out of amlodipine and 159/96 and [...] appt, then will treat. Obese class I [id number] 33348 E66.811 9325412365 04/22/23: BMI 31.9 12/03/22: unable to fill wegovy due to supply issues and waiting on restock. 11/05/22: BMI 32. pt reports steadily increasing weight over past 10 years despite regular diet and exercise and interested in wegovy. educated on adverse drug reactions and administra tion in detail. will rx. RTC one month for weight check. Pt comfortabl e with plan. Smoker 87439423 F17.200 Generalize d anxiety disorder 22270699 F41.1 10/04/24: has not taken fluoxetine for some [...] one month. Pt comfortabl e with plan. [id number] MD Reta Vallejo [facility] [address] [place], [place] [address] 10/19/2024 09:53:06 10/19/2024 10:20:47 Generalized anxiety disorder 27659388 F41.1 10/19/24: reports minimal benefit to duloxetine but denies ADRs. discussed with patient in detail and will trial increasing dose to 60mg and RTC one month to assess resposne. retierated ADRs. pt comfortabl e with plan. 10/04/24: [...] one month. Pt comfortabl e with plan. Essential hypertension 13462202 I10 10/19/24: improved at 136/80 10/04/24: out of [...] start PRN clonidine for BP > 160/100 9/15/23: nurse visit: 140/100 today. bump chlorthali done [...] appt, then will treat. Obese class I 1634643556 13796 E66.811 [id number] 04/22/23: BMI 31.9 12/03/22: unable to fill wegovy due to supply issues and waiting on restock. 11/05/22: BMI 32. pt reports steadily increasing weight over past 10 years despite regular diet and exercise and interested in wegovy. educated on adverse drug reactions and administra tion in detail. will rx. RTC one month for weight check. Pt comfortabl e with plan. Smoker 32784001 F17.473 [id number] MD Reta Vallejo [facility] [address] [place] [address] 11/21/2024 14:37:16 11/21/2024 15:39:24 Obese class I 7129850796 95759 E66.811 6368542494 Generalize d anxiety disorder 25166565 F41.1 11/21/24: no benefit to increased duloxetine . [...] e with plan. Gastroesop hageal reflux disease 992113839 K21.9 7210749979 11/21/24: rx famotidine . [id number] MD Reta Vallejo [facility] [address] [place] [address] 12/21/2024 09:24:30 12/21/2024 09:53:16 Essential hypertension 42932650 I10 12/21/24: 134/88 10/19/24: improved at 136/80 10/04/24: [...] appt, then will treat. Obese class I 1016559670 07994 E66.811 E66.3 2997051424 Generalize d anxiety disorder 38201125 F41.1 12/21/24: taking bupropion as rx'ed and reports [...] one month. Pt comfortabl e with plan. [id number] MICHI Almaraz [facility] [address] [place] [address] 01/21/2025 12:47:41 01/21/2025 13:20:47 Essential hypertension 92257913 I10 01/21/25: 160/94 today. will monitor at [...] appt, then will treat. Obese class I 3095727674 06500 E66.811 E66.3 8940880305 Generalize d anxiety disorder 55019708 F41.1 01/21/25: feels is worse once more [...] one month. Pt comfortabl e with plan. [id number] MICHI Almaraz [facility] [address] [place] [address] 02/19/2025 12:55:47 02/19/2025 13:18:49 Essential hypertension 26554375 I10 02/19/25: 158/88. recommend BiD BP log x10-14 days and will adjust as needed. 01/21/25: 160/94 today. will monitor at one month follow up. 12/21/24: 134/88 10/19/24: improved at 136/80 5/29/25: out of amlodipine and 159/96 and will [...] appt, then will treat. Obese class I 1599712473 12517 E66.811 E66.3 9018365485 Generalize d anxiety disorder 27865867 F41.1 02/19/25: reports good benefit to escitalopr [...] e with plan. Gastroesop hageal reflux disease 043700558 K21.9 02/19/25: stated as controlled with limiting caffeine mostly and just taking famotidine PRN. 11/21/24: rx famotidine . Health Concerns Section Related Observation LastModified by Organization Detai ls LastModified Time None Recorded Concern Status LastModified by Organization Details LastModified Time None Recorded Advance Directives Directive N: Payers Insurance Date Sequence Insurance Name Policy Number Policy [place] Covered Member ID [place] Member ID Guarantor Name 12/07/2022 1 *SELF PAY* Vi nicole Hernandez Th[place] 02/16/2025 1 [place] 111 Radha Valente Thiago [id number] Radha Hernandez Thiago 11/08/2022 1 [place] 112 Nir Thiago [id number] Radha Cavazosn Thiago 11/28/2023 1 [place] 112 Nir Thiago [id number] Radha Cavazosn Thiago Notes Date Note Type Note Provider Name and Address Organization Details Recorded Time 10/19/2024 text/html ROS as noted in the HPI pt presents for f/u RENETTA. reports minimal benefit to duloxetine but denies ADRs. denies depressed mood, SI, HI, AVH. denies sleep changes. no interval panic symptoms. feeling pretty good overall. Laz Armstrong PA-C Attn: Accounting[address] [place], [address], [facility] - [facility] 10/19/2024 10:20:53 11/21/2024 text/html ROS as noted in the HPI 11/21/24: 1 month follow up after increasing duloxetine from 30 to 60 mg. States that her anxiety got worse over the past month. I feel like I can't catch my breath because I'm so worked up. Increased agitation and fatigue at the end of the day. Trouble getting to sleep and staying asleep. Denies anhedonia, thoughts of suicide, self harm, low mood. Would like to try Welbutrin and a sleep aid. Laz Armstrong PA-C Attn: Accounting[address] [place], [address], [facility] - SI 11/26/2024 08:10:17 12/21/2024 text/html ROS as noted in the HPI taking bupropion as rx'ed and reports about a 50% reduction in anxiety symptoms and getting 7 hours of sleep consistently a night on trazodone with no ADRs. denies panic attacks, seizures, dry mouth, HAs, dizziness, NVD, SI Laz Armstrong PA-C Attn: Accounting[address] [place], [address], [facility] - [facility] 12/21/2024 10:04:58 01/21/2025 text/html ROS as noted in the HPI Pt presents for f/u RENETTA. feels is worse once more with intermittent anxiety spikes without SI, HI, AVH. reports continued benefit to trazodone for sleep. feels anxiety worse on higher dose bupropion than off of meds and desires change. denies new stressors. Laz Armstrong PA-C Attn: Accounting[address] [place], [address], [facility] 01/21/2025 15:44:26 02/19/2025 text/html ROS as noted in the HPI Pt presents for one month f/u GADreports good benefit to escitalopram. denies any interval panic symptoms and feels daily stress is more manageable and is sleeping better as well. no ADRs. denies SI, HI, AVH. Laz Armstrong PA-C Attn: Accounting[address] [place], [address], [facility] 02/19/2025 13:20:35 OBGyn Episode No OBEpisode recorded.
--- OUTSIDE RECORDS SUMMARY | 2025-04-20 20:12 | XMS_ITS | Clinical Summary ---
Author Organization [facility] Address [address] [place] [address] Care Team Providers Care Storage Solutions Architect Name Role Phone Nicole Lemons MD Unavailable [phone] Laz Armstrong Primary Care Provider Allergies Active Allergy Reactions Criticality Noted Date Comments Lisinopril Palpitations,Headache Low 09/14/2023 Medications Slynd tablet tabletIndications: Contraception Take 1 each (4 mg total) by mouth every morning Active amLODIPine (NORVASC) 10 mg tabletIndications: hypertension Take 1 tablet (10 mg total) by mouth every morning 4 Active hydrOXYzine (VISTARIL) 25 mg capsuleIndications :sleep Take 1 capsule (25 mg total) by mouth nightly as needed for anxiety Active lysine 1,000 mg tabletIndications: supplement Take 1 tablet by mouth every morning Active cloNIDine (CATAPRES) 0.1 mg tabletIndications: hypertension Take 1 tablet (0.1 mg total) by mouth as needed for high blood pressure For blood pressure reading over 160/100 Active multivitamin tabletIndications: Vitamin Deficiency Prevention Take 1 tablet by mouth every morning Active ascorbic acid/vitamin E/biotin (HAIR, SKIN, NAILS WITH BIOTIN ORAL)Indications:s upplement Take 1 tablet by mouth every morning Active oxyCODONE-acetamin ophen (PERCOCET) 5-325 mg per tabletIndications: Pain Take 1-2 tablets by mouth every 4 (four) hours as needed for pain 8 tablet 4 Active Active Problems Problem Noted Date Diagnosed Date Mass of left breast 12/20/2023 Mass of lower outer quadrant of left breast 09/08 Immunizations Immunization Administration Dates Next Due DTP 07/14/1983,08/13/1981,12/25/1979 ,08/25/1979,1978 MMR 07/09/1981 OPV 07/14/1983,08/13/1981,12/25/1979 ,08/25/1979,1978 Tdap 11/05/2022 Surgical History Surgery Date Site/Laterality Comments KNEE SURGERY Bilateral 2019 and 2020 ABLATION 05/09/2017 - 05/08/2018 uterine BREAST BIOPSY 09/28/2023 Left Medical History Medical History Date Comments Hypertension Headache Motion sickness Family History Medical History Relation Name Comments Colon cancer Maternal Grandmother Liver cancer Maternal Grandmother Breast cancer Other 1 aunt Esophageal cancer Other 2 uncle Prostate cancer Other 3 uncle Anesthesia problems Neg Hx Relation Name Status Comments Maternal Grandmother Other 1 aunt Other 2 uncle Other 3 uncle Social History Tobacco Use Types Packs/Day Years Used Date Smoking Tobacco: Former Cigarettes 1 13 1 - 2007 Passive Smoke Exposure: Never Smokeless Tobacco: Never Tobacco Cessation:Counseling Given: Not Answered AUDIT-C Answer Date Recorded Q1: How often [...] on file Sexual Orientation Not on file Last Filed Vital Signs Vital Sign Reading Time Taken Comments Blood Pressure 130/88 01/02/2024 11:30 AM CDT Pulse 69 01/02/2024 11:30 AM CDT Temperature 36.2 C (97.2 F) 01/02/2024 11:15 AM CDT Respiratory Rate 23 01/02/2024 9:50 AM CDT Oxygen Saturation 100% 01/02/2024 11:30 AM CDT Inhaled Oxygen Concentration - - Weight 90.7 kg (200 lb) 01/02/2024 9:45 AM CDT Height 165.1 cm (5' 5) 01/02/2024 9:45 AM CDT Body Mass Index 33.28 01/02/2024 9:45 AM CDT Plan of Treatment Health Maintenance Due Date Last Done Comments Breast Cancer Screening-Mammogram 1978 Cervical Cancer Screening 1978 Colon Cancer Screening-Colonoscopy 1978 Depression Screening 1978 Hepatitis C Screening 1978 Hepatitis B Screening 1996 Regular Well Visit/Exam 18-64 1996 Influenza Vaccine (#1) 2025 DTaP/Tdap/Td Vaccine (7 - Td or Tdap) 11/05/2032 11/05/2022, 07/14/1983, 08/13/1981, Additional history exists HPV Vaccines Aged Out No longer eligi ble based on patient's age to complete this topic Pneumococcal vaccine <65 Aged Out No longer eligible based on patient's age to complete this topic Medical Devices Implanted Type Area Head Screen Worker Device Identifier Shelf Expiration Date Model / Serial / Lot Bard Peripheral Vascular Ultraclip Bard 17ga 10cm 2 Trigger Permanent Ultrasound [id number] - [id number] Implanted:Qty: 1 on 09/28/2023 at [facility] Left: Breast Bard Peripheral Vascular [id number] / / Insurance [facility] [employer] [facility] [employer] Care Teams Storage Solutions Architect Relationship Specialty Start Date End Date Laz Armstrong PA [address] [place] [address] PCP - General Physician Registrar Assistant 08/26/23 Nicole Lemons MD [address] [address] Referring Physician Gynecology 08/24/23
[2025-04-20] MEDS: ACETAMINOPHEN 500 MG TABLET 1000 MG PO (21:10)
[2025-04-20] MEDS: LIDOCAINE 1% LOCAL INJ 10 ML VIAL (22:21)
--- NOTE | 2025-04-21 00:30 | ED.FALL ---
HPI - Fall General Chief Complaint: Fall Stated Complaint: fall Time Seen by Provider: 04/20/25 19:51 History of Present Illness HPI Narrative: 45-year-old female presenting after a syncopal event. Patient states she began to feel stomach cramps and got up to use the restroom, she then syncopized and fell to the floor hitting her head sustaining a left-sided eyebrow laceration. Patient's family members report she regained consciousness almost instantaneously. Denies nausea/vomiting, vision changes/dizziness, chest pain/shortness breath, numbness/tingling. Patient does report a significant history of vasovagal episodes. Related Data Allergies Allergy/AdvReac Type Severity Reaction Status Date / Time No Known Allergies Allergy Verified 04/20/25 21:10 Review of Systems Review of Systems: All systems reviewed & are unremarkable except as noted in HPI and below Exam Narrative: GENERAL:No acute distress. HEAD: Normocephalic, atraumatic. 2.5 cm linear laceration continuous with her left eyebrow and a small 1 cm linear laceration directly above this. No foreign bodies. Bleeding controlled. EYES: PERRLA and EOMI. ENT: Nares clear, no rhinorrhea or epistaxis. Mucous membranes moist. Oropharynx without tonsillar hypertrophy exudate or other lesions. Bilateral TMs pearly leonard non-bulging NECK: Supple. No adenopathy or masses. No carotid bruits or JVD CHEST: Clear to auscultation. No respiratory distress. No wheezes rales or rhonchi HEART: Regular rate and rhythm. No murmur heard. Normal peripheral pulses. ABDOMEN: Soft, nontender, nondistended, normal active bowel sounds. EXTREMITIES: Normal range of motion. No edema. SKIN: Warm, dry, no rash. NEURO: No focal deficits. Alert and oriented x3. PSYCH: Normal mood and affect Course Vital Signs Vital signs: Vital Signs Temperature 98.2 F 04/20/25 19:16 Pulse Rate 79 04/20/25 19:16 Respiratory Rate 18 04/20/25 19:16 Blood Pressure 155/92 H 04/20/25 19:16 Pulse Oximetry 100 04/20/25 19:16 Oxygen Delivery Room Air 04/20/25 19:16 Temperature 98.2 F 04/20/25 19:16 Pulse Rate 79 04/20/25 19:16 Respiratory Rate 18 04/20/25 19:16 Blood Pressure 155/92 H 04/20/25 19:16 Pulse Oximetry 100 04/20/25 19:16 Oxygen Delivery Room Air 04/20/25 19:16 [facility] Narrative Medical decision making narrative: 45-year-old female presenting after a syncopal event. Patient states she began to feel stomach cramps and got up to use the restroom, she then syncopized and fell to the floor hitting her head sustaining a left-sided eyebrow laceration. Patient's family members report she regained consciousness almost instantaneously. Denies nausea/vomiting, vision changes/dizziness, chest pain/shortness breath, numbness/tingling. Patient does report a significant history of vasovagal episodes. The patient is not on blood thinners. Upon my initial assessment patient is nontoxic with stable vitals only reporting a headache. Administered Tylenol which improved patient's Headache. Patient has a 2.5 cm linear laceration continuous with her left eyebrow and a small 1 cm linear laceration directly above this. Bleeding is controlled. Verbal consent was obtained prior to suturing of head laceration. The wounds were cleaned with Betadine and irrigated with copious amounts of normal saline. Lidocaine 1% without epinephrine was used for anesthesia. Wounds were explored and no foreign body was seen. The wounds were then closed with 5-0 nylon sutures, 4 to the large laceration and 1 to the small, in simple interrupted fashion. A sterile dressing was applied following the procedure. Patient tolerated the procedure well. Imaging demonstrated no acute abnormalities. EKG and labs are without significant high risk changes. Plan to discharge home with close follow-up. Patient agrees with discussion and after shared medical decision making agrees with plan of care. All questions were answered to the patient's satisfaction. Given reasons to return. Differential Diagnosis Differential Diagnosis: Differential diagnostic considerations for syncope include arrythmia, valvular heart disease, ACS, vasovagal or orthostatic syncope, RN ACCESS lesion such as CVA, TIA, seizure, pulmonary embolism, complete atrioventricular block, vertebrobasilar insufficiency. Lab Data [facility] Lab Attestation statement: I personally reviewed the patient's lab results. 04/20/25 19:32 04/20/25 19:32 Labs: Lab Results 04/20/25 04/20/25 Range/Units 19:32 19:59 WBC 9.9 (4.5-10.0) K/mm3 RBC 3.87 L (4.2-5.4) M/mm3 Hgb 12.6 (12.0-15.0) g/dL Hct 38.2 (37.0-47.0) % MCV 98.7 (80-100) fl MCH 32.6 (26-34) pg MCHC 33.0 (32-36) g/dl RDW 12.4 (11.5-14.5) % Plt Count 313 (150-375) k/mm3 MPV 8.5 (7.4-10.4) fl Immature Gran % (Auto) 0.5 (0-0.5) % Neut % (Auto) 63.2 (45.5-73.1) % Lymph % (Auto) 24.9 (18.3-44.2) % [place] % (Auto) 8.8 H (2.6-8.5) % Eos % (Auto) 1.6 (0-4.4) % Baso % (Auto) 1.0 (0.2-1.2) % Lymph # (Auto) 2.48 (0.9-3.2) K/mm3 [place] # (Auto) 0.9 H (0.1-0.6) K/mm3 Eos # (Auto) 0.2 (0-0.3) K/mm3 Baso # (Auto) 0.1 (0.0-0.1) K/mm3 Abs Immat Gran (auto) 0.05 H (0.00-0.031) K/mm3 Absolute Neuts (auto) 6.3 (1.3-6.7) K/mm3 Absolute Nucleated RBC 0.000 (0.0-0.012) K/mm3 Nucleated RBC % 0.0 (0.0-0.2) % Sodium 132 L (137-145) mmol/L Potassium 3.4 (3.4-5.0) mmol/L Chloride 104 (98-107) mmol/L Carbon Dioxide 18 L (22-30) mmol/L Anion Gap 10 (4-12) mmol/L BUN 13 (7-17) mg/dL Creatinine 0.70 (0.7-1.0) mg/dL Estim Creat Clear Calc 98 ml/min Estimated GFR > 60 (59 - ) Glucose 132 H (65-110) mg/dL Calcium 9.1 (8.4-10.2) mg/dL Total Bilirubin 0.4 (0.2-1.3) mg/dL AST 25 (14-36) U/L ALT 19 (6-35) U/L Alkaline Phosphatase 56 (38-126) U/L Total Protein 7.4 (6.3-8.2) g/dL Albumin 4.3 (3.5-5.1) g/dL POC Urine HCG, Qual Negative (Negative) Imaging Data Attestation: I personally reviewed and interpreted this imaging study as follows: Radiologist's impression: ITS Impressions Chest X-Ray 04/20/25 20:00 Impression: No acute cardiopulmonary abnormality. Head CT 04/21/25 06:40 IMPRESSION: 1. No acute intracranial findings. ECG Data EKG #1: ECG completion date: 04/20/25 ECG completion time: 19:31 normal rate, sinus rhythm and no acute changes Discharge Plan Discharge Clinical Impression: Syncope, Laceration Patient Disposition: Home Condition: Stable Instructions: Care For Your Stitches (ED), Laceration (ED), Syncope (ED), Head Injury (ED) Additional Instructions: Return to the emergency department if you experience fever, redness or swelling of your wound, abnormal drainage from your wound, or any other symptoms that are concerning to you. Apply antibiotic ointment daily. Do not soak the wound. Clean with mild soap and water daily. Take anti-inflammatories (Aleve, Ibuprofen, Naproxen, etc) and Tylenol as needed for pain. Follow-up with your primary care doctor for suture removal in [7] days. Patient Language: Prydeinig Follow-up/Referrals: Nicole Lemons MD [Primary Care Provider, DATA CENTER TECHNICIAN]
== END 2025-04-20 22:46 | disposition home or self-care (01) ==
PROVIDERS: Student in an Organized Health Care Education/Training Program; PCP Obstetrics & Gynecology Gynecology
DX: R55 Syncope and collapse (principal); S01.112A Laceration without foreign body of left eyelid and periocular area, initial encounter; W18.39XA Other fall on same level, initial encounter
CPT/HCPCS: 12013; 36415; 70450; 71045; 80053; 81025; 85025; 93005; 99284; A9270; J2003